=== PATIENT | female | born 1990 | race African-American/Black ===

== ENCOUNTER 2023-01-16 12:47 | Emergency (ER) | payer OTHER ==
[~2023-01-16] VITALS: Ht 157.5 cm; Wt 77.0 kg
[2023-01-16 16:58] VITALS: BP 102/64
== END 2023-01-16 17:13 | disposition home or self-care (01) ==
LOC: ER 12:47
DX: F43.9 Reaction to severe stress, unspecified (principal); F41.9 Anxiety disorder, unspecified
CPT/HCPCS: 99283